=== PATIENT | male | born 1970 | race Caucasian/White ===

== ENCOUNTER 2021-10-20 15:06 | Emergency (ER) | payer OTHER ==
[2021-10-20 15:32] VITALS: BP 128/83; PULSE 91; RESP 18; TEMP 98.2
--- NOTE | 2021-10-20 16:08 | ED ---
General Adult HPI - General Chief complaint: Extremity Injury, Lower Stated complaint: Ankle Injury Time Seen by Provider: 10/20/21 15:52 Source: patient Mode of arrival: wheelchair - History of Present Illness Initial comments: Patient is a 50-year-old male presenting with chief complaint of left ankle pain. Patient states that 6 days ago he fell down the stairs after he missed a step, landing on his heel and inverting the ankle. He states that the following day he was standing on top of a paint can when the can and slipped from underneath him and he again landed on his ankle in inversion. Patient has not been able to bear weight or ambulate without the use of a cane or crutches. He denies any numbness or tingling. His sensation is still intact. No discoloration of the foot or cold or warm sensation. Pain is located mainly on the lateral portion of the foot and ankle. - Related Data Home Medications Medication Instructions Recorded Confirmed Acetaminophen [Tylenol 8 Hour] 650 mg PO Q4H PRN 10/20/21 10/20/21 Calcium/Magnesium/Zinc 1 tab PO TID PRN 10/20/21 10/20/21 [Jaopmjw-Eyznoeamg-Jwnd Tablet] Chlorpheniramine Maleate 4 mg PO Q4H PRN 10/20/21 10/20/21 [Chlor-Trimeton] Folic Acid Unknown Dose 1 tab PO DAILY PRN 10/20/21 10/20/21 Ibuprofen [Motrin Ib] 600 mg PO Q6H PRN 10/20/21 10/20/21 LORazepam [Ativan] 1 - 2 mg PO Q4H 10/20/21 10/20/21 Loperamide HCl [Imodium A-D] 4 mg PO Q12H PRN 10/20/21 10/20/21 Mirtazapine [Remeron] 15 mg PO HS 10/20/21 10/20/21 Multivitamins, Thera [Multivitamin 1 tab PO DAILY 10/20/21 10/20/21 (formulary)] Thiamine [Vitamin B-1] 100 mg PO DAILY 10/20/21 10/20/21 ondansetron HCL [Zofran] 8 mg PO Q6H PRN 10/20/21 10/20/21 Previous Rx's Medication Instructions Recorded Ibuprofen [Motrin] 600 mg PO Q8HR PRN #30 tab 10/20/21 Allergies Allergy/AdvReac Type Severity Reaction Status Date / Time No Known Allergies Allergy Verified 10/20/21 16:54 Review of Systems ROS Statement: Those systems with pertinent positive or pertinent negative responses have been documented in the HPI. ROS Other: All systems not noted in ROS Statement are negative. Past Medical History Additional Past Medical History / Comment(s): Hep c History of Any Multi-Drug Resistant Organisms: None Reported Past Surgical History: Tonsillectomy Additional Past Surgical History / Comment(s): eye surgery Past Psychological History: Anxiety Smoking Status: Current every day smoker Past Alcohol Use History: Abuse, Daily, Heavy Past Drug Use History: Marijuana General Exam Limitations: no limitations General appearance: alert, in no apparent distress Head exam: Present: atraumatic, normocephalic, normal inspection Eye exam: Present: normal appearance, EOMI. Absent: scleral icterus Neck exam: Present: normal inspection Left Ankle exam: Present: tenderness, swelling. Absent: full ROM, ecchymosis, deformity, erythema Foot/Toe exam: Present: normal inspection, full ROM. Absent: tenderness Neurovascular tendon exam: Present: no vascular compromise. Absent: sensory deficit Gait: not tested/not observed Neurological exam: Present: alert, oriented X3, CN II-XII intact Psychiatric exam: Present: normal affect, normal mood Skin exam: Present: warm, dry, intact, normal color. Absent: rash Course Vital Signs 10/20/21 15:29 Temperature 98.2 F Pulse Rate 91 Respiratory 18 Rate Blood Pressure 128/83 O2 Sat by Pulse 100 Oximetry Medical Decision Making - Medical Decision Making 50-year-old male presenting with chief complaint of left foot and ankle pain for 6 days. Patient states that he initially injured the left foot 6 days ago after falling on the stairs. The following day he injured the ankle bilaterally leaning on inversion after falling off of a paint can. On exam he is neurovascularly intact, range of motion is painful. Patient states he is unable to bear weight on the foot or ambulate without the use of crutches. X-ray shows a nondisplaced calcaneal fracture. Patient was placed in a posterior ankle splint and instructed to follow-up with podiatry. I discussed the findings and plan with Dr. Davila, orthopedist iron installer. Instructed patient to utilize Motrin, Tylenol, icing for pain control. Remain nonweightbearing, continue use of crutches. I educated him on return parameters and alarm symptoms. Answered all questions. Follow up with her PCP and podiatry as instructed. Report back to ER if any worsening symptoms. Patient conveyed verbal understanding and agreed to the plan. I discussed this case with my attending Dr. Wilkinson. - Radiology Data Radiology results: report reviewed, image reviewed X-ray: Nondisplaced calcaneal fracture. Disposition Clinical Impression: Calcaneal fracture Disposition: HOME SELF-CARE Condition: Good Instructions (If sedation given, give patient instructions): Calcaneal Fracture (ED) Additional Instructions: Follow-up with podiatry as instructed. Follow-up with PCP as instructed. Take Motrin and Tylenol for pain control as needed. Utilize ice and elevation for symptomatic management. Report back to ER with any worsening symptoms. Prescriptions: Ibuprofen [Motrin] 600 mg PO Q8HR PRN #30 tab PRN Reason: Pain Is patient prescribed a controlled substance at d/c from ED?: No Referrals: Lalo Nielsen MD [Primary Care Provider] - 1-2 days Rashaun Nieves DPM [Doctor of Osteopathic Medicine] - 1-2 days Time of Disposition: 17:20
--- NOTE | 2021-10-20 16:24 | XR ---
EXAMINATION TYPE: XR ankle complete LT DATE OF EXAM: 10/20/2021 COMPARISON: NONE HISTORY: Pain TECHNIQUE: 3 views of the left ankle are submitted for evaluation. FINDINGS: There is no evidence for fracture or dislocation. Ankle mortise is intact. Soft tissues are within normal limits. IMPRESSION: 1. No evidence for acute fracture.
--- NOTE | 2021-10-20 16:27 | XR ---
EXAMINATION TYPE: XR foot complete LT DATE OF EXAM: 10/20/2021 CLINICAL HISTORY: pain TECHNIQUE: Frontal, lateral and oblique images of the left foot are obtained. COMPARISON: None. FINDINGS: Vague lucency traversing the calcaneus at its mid body. Findings are compatible with nondis placed calcaneal fracture. Soft tissue swelling noted. IMPRESSION: Nondisplaced calcaneal fracture.
== END 2021-10-20 17:43 | disposition home or self-care (01) ==
LOC: EC 15:06
DX: S92.002A Unspecified fracture of left calcaneus, initial encounter for closed fracture (principal); F17.200 Nicotine dependence, unspecified, uncomplicated; W10.9XXA Fall (on) (from) unspecified stairs and steps, initial encounter
CPT/HCPCS: 29515; 99283